=== PATIENT | male | born 1975 | race Caucasian/White ===

== ENCOUNTER 2018-02-02 17:41 | Emergency (ER) | payer BC ==
[~2018-02-02] VITALS: Ht 172.7 cm; Wt 106.8 kg
[2018-02-02 17:43] VITALS: BP 137/98; TEMP 98.9
[2018-02-02 19:03] VITALS: PULSE 99
== END 2018-02-02 19:04 | disposition home or self-care (01) ==
LOC: COL.ER 17:41
DX: Z20.1 Contact with and (suspected) exposure to tuberculosis (principal); F17.200 Nicotine dependence, unspecified, uncomplicated; Z98.890 Other specified postprocedural states

== ENCOUNTER → 2018-02-05 | Outpatient (CLI) | payer BC | LOC: COL.VAS 08:58 | DX: R00.0 Tachycardia, unspecified (principal) ==

== ENCOUNTER 2024-07-18 19:08 | Emergency (ER) | payer OTHER, BC ==
[~2024-07-18] VITALS: Ht 175.3 cm; Wt 113.6 kg
[~2024-07-18 19:08] MED LIST: CEPHALEXIN500 M1 PO
[2024-07-18 19:14] VITALS: PULSE 83; TEMP 99.2
[2024-07-18] MEDS ORDERED: AMOXICILLIN 50500 MG PO (19:30)
[2024-07-18] MEDS ORDERED: Amoxicillin 500 MG CAP PO ONE (19:30)
[2024-07-18] MEDS ORDERED: HYDROcodone/Acetaminophen 7.5-325 MG TAB PO ONE (19:30)
[2024-07-18] MEDS ORDERED: dexAMETHasone 10 MG/ML VIAL IM ONE (19:30)
[2024-07-18 19:42] VITALS: BP 157/104
== END 2024-07-18 19:45 | disposition home or self-care (01) ==
LOC: COL.ER 19:08
DX: K04.7 Periapical abscess without sinus (principal); F17.200 Nicotine dependence, unspecified, uncomplicated
CPT/HCPCS: J1100